=== PATIENT | female | born 1935 | race Caucasian/White ===

== ENCOUNTER 2019-09-12 22:47 | Emergency (ER) | payer OTHER, MEDICARE ==
[~2019-09-12] VITALS: Ht 157.5 cm; Wt 65.8 kg
[~2019-09-12 22:47] MED LIST: FLEXERIL PO; IBUPROFEN 600600 M1 PO; NORCO 5-325 TA1 EACH PO
[2019-09-12 23:35] LABS: ABSOLUTE NEUTROPHILS 5.3 thou/uL (1.4-8.2); ANION GAP 10 mmol/L (7-16); BASOPHILS 1.5 % (0.0-2.0); BUN 27 mg/dL (7-18); CALCIUM 8.9 mg/dL (8.5-10.1); CHLORIDE 101 mmol/L (98-107); CO2 25 mmol/L (21-32); CREATININE 1.2 mg/dL (0.6-1.0); EOSINOPHILS 4.6 % (0.0-3.0); GLUCOSE 100 mg/dL (74-106); HEMATOCRIT 41.5 % (37.0-47.0); HEMOGLOBIN 14.1 gm/dL (12.0-15.0); LYMPHOCYTES 35.1 % (24.0-44.0); MCH 30.8 pg (26.0-34.0); MCHC 33.9 g/dL (28.0-37.0); MCV 90.9 fL (80.0-100.0); MONOCYTES 11.3 % (1.0-8.0); PLATELET COUNT 226 thou/uL (150-400); POLYS 47.5 % (36.0-66.0); POTASSIUM 4.1 mmol/L (3.5-5.1); RBC 4.57 mil/uL (4.20-5.00); RDW 14.5 % (10.5-14.5); SODIUM 136 mmol/L (136-145); WBC 11.2 thou/uL (4.0-11.0)
[2019-09-12 23:45] LABS: ALBUMIN 3.9 g/dL (3.4-5.0); SGOT 21 U/L (15-37); SGPT 20 U/L (30-65); TOTAL BILIRUBIN 0.2 mg/dL (<0.1-1.0); TOTAL PROTEIN 7.6 g/dL (6.4-8.2); TROPONIN-I <0.06 ng/mL (<0.06)
[2019-09-13] MEDS ORDERED: CYCLOBENZAPRINE5 MG PO (01:08)
[2019-09-13 01:27] VITALS: BP 106/67
--- NOTE | 2019-09-14 08:58 | EKG ---
[facility] [place] [address] ELECTROCARDIOGRAM REPORT Name: SIERRA ARAUZ Room #: DEP [facility].#: [id number] Admission: 09/12/19 Attend Phys: Discharge: 09/13/19 Date of : 39 Report #: [id number] THIS REPORT FOR: cc: Sebastián Back MD, Neal A. MD Lundgren,Mu Nava MD [facility] THIS REPORT FOR: //name// [facility] ED Test Date: 2019-09-12 Test Time: 23:07:08 Pat Name: SIERRA ARAUZ Department: Room: Gender: F Equity Research Associate: AIXA : 1935 Requested By: Order Number: [id number] MD: Mu Quezada Measurements Intervals [place] Rate: 97 P: 83 WA: 162 QRS: 52 QRSD: 99 T: 74 QT: 355 QTc: 451 Interpretive Statements Sinus rhythm No significant abnormality No previous ECG available for comparison Electronically Signed On 09-14-2019 8:56:42 CDT by Mu Quezada [email or web address] <ELECTRONICALLY SIGNED> By: Mu Quezada MD, [facility] 09/14/19 [id number] [id number] 06 Mu Quezada MD, [facility] /EPI
== END 2019-09-13 01:29 | disposition home or self-care (01) ==
LOC: ER 22:47
PROVIDERS: Emergency Medicine
DX: R07.89 Other chest pain (principal); R05 Cough; R09.89 Other specified symptoms and signs involving the circulatory and respiratory systems; F17.210 Nicotine dependence, cigarettes, uncomplicated

== ENCOUNTER → 2020-09-05 | Outpatient (CLI) | payer OTHER, MEDICARE ==
[~2020-09-05] MED LIST changes: +CYCLOBENZAPRINE5 MG PO
== END ==
LOC: SJCVCIMAG 06:46
PROVIDERS: ATTEND Family Medicine
DX: I08.1 Rheumatic disorders of both mitral and tricuspid valves (principal); Z79.899 Other long term (current) drug therapy

== ENCOUNTER 2020-12-18 18:50 | Emergency (ER) | payer OTHER, MEDICARE ==
[~2020-12-18] VITALS: Ht 157.5 cm; Wt 63.5 kg
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
[2020-12-18 19:28] LABS: URINE BILIRUBIN NEGATIVE (Negative); URINE BLOOD NEGATIVE (Negative); URINE CLARITY CLEAR; URINE COLOR YELLOW; URINE GLUCOSE-RANDOM* NEGATIVE (Negative); URINE KETONES NEGATIVE (Negative); URINE LEUKOCYTES-REFLEX 1+ (Negative); URINE NITRITE-REFLEX NEGATIVE (Negative); URINE PROTEIN (DIPSTICK) NEGATIVE (Negative); URINE SPECIFIC GRAVITY 1.025 (1.005-1.035); URINE UROBILINOGEN 0.2 E.U./dl (0.2-1.0)
[2020-12-18 19:46] LABS: ABSOLUTE NEUTROPHILS 7.8 thou/uL (1.4-8.2); EOSINOPHILS 3.1 % (0.0-3.0); HEMATOCRIT 42.4 % (37.0-47.0); HEMOGLOBIN 14.1 gm/dL (12.0-15.0); LYMPHOCYTES 13.2 % (24.0-44.0); MCH 30.4 pg (26.0-34.0); MCHC 33.3 g/dL (28.0-37.0); MCV 91.3 fL (80.0-100.0); MONOCYTES 7.9 % (1.0-8.0); PLATELET COUNT 215 thou/uL (150-400); POLYS 74.8 % (36.0-66.0); RBC 4.64 mil/uL (4.20-5.00); WBC 10.4 thou/uL (4.0-11.0)
[2020-12-18 19:51] LABS: BACTERIA-REFLEX >30 Many /HPF (None Seen); SQUAMOUS >10 Many /LPF (0-3); YEAST-REFLEX Present (None Seen)
[2020-12-18 19:52] LABS: CASTS None Seen /LPF (None Seen); URINE WBC-REFLEX 6-15 Few /HPF (0-5)
[2020-12-18 19:52] LABS: ANION GAP 10 mmol/L (7-16); BUN 18 mg/dL (7-18); CALCIUM 8.3 mg/dL (8.5-10.1); CHLORIDE 108 mmol/L (98-107); CO2 23 mmol/L (21-32); CREATININE 1.1 mg/dL (0.6-1.0); GLUCOSE 115 mg/dL (74-106); SODIUM 141 mmol/L (136-145)
[2020-12-18 19:53] LABS: CRYSTALS None Seen /LPF (None Seen); URINE RBC None Seen /HPF (NONE SEEN)
[2020-12-18 20:03] LABS: ALBUMIN 3.2 g/dL (3.4-5.0); LIPASE 98 U/L (73-393); SGOT 22 U/L (15-37); SGPT 16 U/L (14-59); TOTAL BILIRUBIN 0.4 mg/dL (0.2-1.0); TOTAL PROTEIN 6.6 g/dL (6.4-8.2); TROPONIN-I <0.06 ng/mL (<0.06)
[2020-12-18 20:04] LABS: POTASSIUM 3.7 mmol/L (3.5-5.1)
[2020-12-18] MEDS ORDERED: NORVASC10 MG PO (20:14)
[2020-12-18] MEDS ORDERED: VALSARTAN160 MG PO (20:14)
[2020-12-18] MEDS ORDERED: CEFPODOXIME PR200 M1 PO (22:01)
[2020-12-18 22:22] VITALS: BP 124/64
--- NOTE | 2020-12-19 11:08 | EKG ---
[address] [address] ELECTROCARDIOGRAM REPORT Name: REGLASIERRA Matias Room #: [facility]#: [id number] Admission: 12/18/20 Attend Phys: Discharge: 12/18/20 Date of : 39 Report #: [id number] [facility] ED Test Date: 2020-12-18 Test Time: 19:36:04 Pat Name: SIERRA ARAUZ Department: Room: Gender: F Reach Truck Operator: JCHAIREEly : 1935 Requested By: Chandana Dobbins Order Number: [id number] MD: Brad Carson Measurements Intervals [place] Rate: 77 P: 83 OR: 165 QRS: 64 QRSD: 109 T: 66 QT: 405 QTc: 459 Interpretive Statements Sinus rhythm Compared to ECG 09/12/2019 23:07:08 No significant changes Electronically Signed On 12-19-2020 11:08:41 CDT by Brad Carson [email or web address] <ELECTRONICALLY SIGNED> By: Brad Carson MD, [facility] 12/19/20 [id number] Brad Carson MD, FACC /EPI
== END 2020-12-18 22:23 | disposition home or self-care (01) ==
LOC: ER 18:50
PROVIDERS: Emergency Medicine
DX: N39.0 Urinary tract infection, site not specified (principal); Z20.822 Contact with and (suspected) exposure to COVID-19; R53.83 Other fatigue; Z79.899 Other long term (current) drug therapy